=== PATIENT | female | born 1955 | race Caucasian/White ===

== ENCOUNTER 2019-05-03 15:32 | Inpatient (IN) | payer OTHER ==
--- NOTE | 2019-05-03 16:02 | PDOC ---
History of Present Illness - General Chief Complaint: Blood Pressure Problem Stated Complaint: HTN Time Seen by Provider: 05/03/19 15:39 - History of Present Illness Initial Comments: 05/03/19 15:57 Pt is a 63y/o F with hx of HTN and BCa s/p lumpectomy (on Anastrasozole) brought to ED from Urgent care center with BP of 216/110. Her BP at home this morning circa 6:30 a.m was 224 systolic. She took her blood pressure medication and went to work. While at work BP remained elevated and she proceeded to urgent care. She has had a mild throbbing headache for a few hours that she rates as a 2/10 at the back of her head. Denies any blurry vision, numbness, weakness, facial droop,fevers,chills. 05/06/19 19:17 Past History - Past Medical History Allergies/Adverse Reactions: Allergies Allergy/AdvReac Type Severity Reaction Status Date / Time No Known Allergies Allergy Verified 05/03/19 15:33 Home Medications: Ambulatory Orders Anastrozole [Arimidex -] 1 mg PO DAILY 05/03/19 Atorvastatin Ca [Lipitor] 40 mg PO HS 05/03/19 Amlodipine Besylate [Norvasc -] 5 mg PO DAILY 30 Days #30 tablet 05/04/19 Carvedilol [Coreg -] 12.5 mg PO BID 30 Days #60 tablet 05/04/19 Hydrochlorothiazide [Hctz -] 12.5 mg PO DAILY 30 Days #30 cap 05/04/19 Lisinopril [Prinivil] 40 mg PO DAILY 30 Days #30 tablet 05/04/19 COPD: No HTN: Yes - Suicide/Smoking/Psychosocial Hx Smoking History: Never smoked Hx Alcohol Use: No Drug/Substance Use Hx: No Review of Systems - Review of Systems Neurological: Yes: See HPI All Other Systems: Reviewed and Negative *Physical Exam - Vital Signs Last Vital Signs Temp Pulse Resp BP Pulse Ox 98.6 F 64 18 239/128 H 100 05/03/19 15:33 05/03/19 15:33 05/03/19 15:33 05/03/19 15:33 05/03/19 15:33 - Physical Exam General Appearance: Yes: Nourished, Appropriately Dressed. No: Apparent Distress, Disheveled HEENT: positive: EOMI, KEVIN, Normal Voice, Hearing Grossly Normal. negative: Scleral Icterus (R), Scleral Icterus (L) Respiratory/Chest: positive: Lungs Clear, Normal Breath Sounds. negative: Respiratory Distress, Labored Respiration, Rales, Wheezing Cardiovascular: positive: Regular Rhythm, Regular Rate, S1, S2, Bradycardia. negative: Edema, JVD, Murmur Integumentary: positive: Normal Color, Dry, Warm Neurologic: positive: search director II-XII NML intact, Fully Oriented, Alert, Normal Mood/ Affect, Normal Response, Motor Strength 5/5. negative: Facial Droop, Numbness ED Treatment Course - LABORATORY CBC & Chemistry Diagram: 05/04/19 07:00 05/04/19 07:00 Medical Decision Making - Medical Decision Making 05/03/19 16:02 BP on arrival in ED is 239/128 . She is proceeding to radiology for head CT. EKG from urgent care showed sinus bradycardia with HR (53) 05/03/19 16:31 Labetalol (20mg iv push) ordered for BP control EKG in ED shows sinus bradycardia HR (58). pr interval: 156ms qrs duration 102ms qt/qtc: 440/431ms Pt. on cardiac monitoring. 05/03/19 17:25 CT results : No hemorrhage. Arachnoid cyst in the posterior fossa. No other acute intracranial pathology. BP down to 194 systolic. Pt has received additional labetalol as well as lisinopril for further blood pressure control. Pt. has been admitted to Dr. Fidelina Sheffield's by Maricarmen Godfrey NP.for further evaluation. 05/03/19 18:42 BP now at 192/73 05/06/19 19:19 *DC/Admit/Observation/Transfer Diagnosis at time of Disposition: Hypertensive emergency - Discharge Dispostion Condition at time of disposition: Improved Decision to Admit order: Yes - Referrals - Patient Instructions - Post Discharge Activity - Transfer to Acute Care Facility Accepting Physician:: Fidelina Sheffield
[2019-05-03] MEDS ORDERED: LABETALOL HCL 5 MG/1 ML (100MG/20 ML VIAL) IVPUSH ONE ×2 (16:24→18:03)
[2019-05-03] MEDS ORDERED: LABETALOL HCL 5 MG/1 ML (100MG/20 ML VIAL) ONE (16:36)
[2019-05-03 16:37] LABS: BASO % 0.3 % (0-2.0); EOS % 0.8 % (0-4.5); HEMATOCRIT 42.9 % (32.4-45.2); HEMOGLOBIN 13.3 GM/dl (10.7-15.3); LYMPH % 28.7 % (8-40); MCH 20.4 pg (25.7-33.7); MCHC 31.1 g/dl (32.0-36.0); MEAN CELL VOLUME 65.6 fl (80-96); NEUT % 64.2 % (42.8-82.8); PLATELET COUNT 248 K/MM3 (134-434); RBC 6.54 M/mm3 (3.60-5.2); RDW 14.1 % (11.6-15.6); WHITE BLOOD COUNT 7.4 K/mm3 (4.0-10.8)
[2019-05-03 16:38] LABS: ADD RBC MORPHOLOGY YES
[2019-05-03 16:45] LABS: ALBUMIN 4.2 g/dl (3.4-5.0); BILIRUBIN,TOTAL 1.1 mg/dl (0.2-1); CALCIUM 9.5 mg/dl (8.5-10); CREATININE 0.7 mg/dl (0.55-1.3); POTASSIUM 4.2 mmol/L (3.5-5.1); TOT PROT 8.4 g/dl (6.4-8.2)
[2019-05-03 16:47] LABS: ACTIVATED PTT 38.8 SECONDS (25.2-36.5)
[2019-05-03 16:51] LABS: INR 1.11 (0.82-1.09); PROTHROMBIN TIME (PATIENT) 12.4 SEC (10.2-13.0)
--- NOTE | 2019-05-03 17:41 | PDOC ---
Attending Attestation - Resident Resident Name: Shan Fox - ED Attending Attestation I have performed the following: I have examined & evaluated the patient, The case was reviewed & discussed with the resident, I agree w/resident's findings & plan, Exceptions are as noted - HPI HPI: 05/14/19 12:40 63 years old past medical history significant for chronic hypertension hyperlipidemia presents emergency Department with headache and elevated blood pressure at home. Not sudden onset not maximal in onset not the worse headache of her life no associated neck pain nausea or vomiting she has had recent changes to her antihypertensive regimen Symptoms are mild to moderate persistent concent no exacerbating or alleviating factors. Insert my ROS statement - Physicial Exam PE: 05/14/19 12:40 Vitals: Triage Vital signs reviewed General Appearance: no acute distress, well nourished well developed, Head: Atraumatic, Eyes: Pupils equal reactive round, extraocular movement intact Cardiac: Regular rate and rhythym, no murmurs, no rubs, no gallops, Lungs: Clear to auscultation bilateral, good air movement bilaterally, Abdomen: Soft, non distended, normal bowel sounds, non tender to palpation Extremities: Full range of motion to all extremities, no cyanosis, clubbing, or edema Skin: Warm and dry, no rashes or lesions, no rash, no petechiae Neuro: AOX3; Cranial Nerves 2-12 grossly intact, Strength intact to all extremities, Sensation intact to all extremities,gait normal Psych: normal mood, normal affect - Critical Care Time Total Critical Care Time: 35 Critical Care Statement: The care of this patient involved high complexity decision making to prevent further life threatening deterioration of the patient 's condition and/or to evaluate & treat vital organ system(s) failure or risk of failure. - Medical Decision Making 05/14/19 12:41 63 years old with hypertensive urgency we'll check head CT labs, EKG, we'll treat with IV labetalol observe and reassess Head CT interpreted by me no acute bleed. Reevaluation EKG with no ischemic changes Reevaluation laboratory analysis within normal limits Reevaluation status post IV labetalol no significant improvement in patient's blood pressure Additional 20 mg of IV labetalol given Patient's blood pressure now starting to trend in the right direction do not want to overcorrect greater than 20% in the initial management Given the need for multiple rounds of IV medication to treat patient's hypertensive urgency we'll admit the hospital for further management.
[2019-05-03] MEDS ORDERED: LABETALOL HCL 100 MG TABLET (FP) PO ONE (17:56)
[2019-05-03] MEDS ORDERED: LISINOPRIL 20 MG TABLET (FP) PO ONE ×2 (17:58→18:03)
[2019-05-03] MEDS ORDERED: LISINOPRIL 5 MG TABLET (FP) ONE (17:59)
[2019-05-03] MEDS ORDERED: amLODIPine BESYLATE 5 MG TABLET (FP) PO ONE (18:43)
[2019-05-03] MEDS ORDERED: amLODIPine BESYLATE 5 MG TABLET (FP) ONE (19:03)
--- NOTE | 2019-05-03 20:33 | HP ---
CHIEF COMPLAINT: headache and elevated blood pressure PCP:Dr. Sheffield HISTORY OF PRESENT ILLNESS: This is a 63 year old female with history of chronic hypertension and hyperlipidemia who presents with symptoms of a headache. She was found to have elevated systolic blood pressures >200 at home. In the ER she was given IV labatalol 20 mg X2 and lisinopril 40 mg once with some improvement in blood pressure. She reports she stopped taking HCTZ because medicine made her urinate alot and she was at work and became an inconvenience. She also reported she previously was on amlodipine which made her legs swell up and then was added on HCTZ and amlodipine was stopped. She denied eating foods high in sodium and she reports being compliant to her other medical regimen including lisinopril ,metoprolol succinate and statin therapy. She denied symptoms of chest pain, back pain or shortness of breath. Workup revealed a normal CT scan of head with no acute intracranial findings and renal studies were normal. She is being admitted for hypertensive urgency and for blood pressure management. Recent Travel: denies PAST MEDICAL HISTORY: chronic hypertension PAST SURGICAL HISTORY: denies Social History: Smoking:denies Alcohol:denies Drugs: denies Family History: noncontributory Allergies No Known Allergies Allergy (Verified 05/03/19 15:33) HOME MEDICATIONS: Home Medications Medication Instructions Recorded Anastrozole [Arimidex -] 1 mg PO DAILY 05/03/19 Atorvastatin Ca [Lipitor] 40 mg PO HS 05/03/19 Lisinopril 0 mg PO DAILY 05/03/19 Metoprolol Succinate 100 mg PO DAILY 05/03/19 REVIEW OF SYSTEMS CONSTITUTIONAL: Absent: fever, chills, diaphoresis, generalized weakness, malaise, loss of appetite, weight change HEENT: Absent: rhinorrhea, nasal congestion, throat pain, throat swelling, difficulty swallowing, mouth swelling, ear pain, eye pain, visual changes CARDIOVASCULAR: Absent: chest pain, syncope, palpitations, irregular heart rate, lightheadedness , peripheral edema RESPIRATORY: Absent: cough, shortness of breath, dyspnea with exertion, orthopnea, wheezing, stridor, hemoptysis GASTROINTESTINAL: Absent: abdominal pain, abdominal distension, nausea, vomiting, diarrhea, constipation, melena, hematochezia GENITOURINARY: Absent: dysuria, frequency, urgency, hesitancy, hematuria, flank pain, genital pain MUSCULOSKELETAL: Absent: myalgia, arthralgia, joint swelling, back pain, neck pain SKIN: Absent: rash, itching, pallor HEMATOLOGIC/IMMUNOLOGIC: Absent: easy bleeding, easy bruising, lymphadenopathy, frequent infections ENDOCRINE: Absent: unexplained weight gain, unexplained weight loss, heat intolerance, cold intolerance NEUROLOGIC: Absent: headache, focal weakness or paresthesias, dizziness, unsteady gait, seizure, mental status changes, bladder or bowel incontinence PSYCHIATRIC: Absent: anxiety, depression, suicidal or homicidal ideation, hallucinations. PHYSICAL EXAMINATION Vital Signs - 24 hr 05/03/19 05/03/19 05/03/19 15:33 16:33 16:55 Temperature 98.6 F Pulse Rate 64 Pulse Rate [ 61 63 Apical] Respiratory 18 18 Rate Blood Pressure 239/128 H Blood Pressure 204/79 H 164/78 [Right Arm] O2 Sat by Pulse 100 99 Oximetry (%) 05/03/19 05/03/19 05/03/19 17:17 18:10 18:39 Temperature Pulse Rate Pulse Rate [ 63 64 61 Apical] Respiratory 18 17 Rate Blood Pressure Blood Pressure 185/74 H 200/83 H 192/73 H [Right Arm] O2 Sat by Pulse 97 Oximetry (%) 05/03/19 19:54 Temperature Pulse Rate Pulse Rate [ 60 Apical] Respiratory 16 Rate Blood Pressure Blood Pressure 190/83 H [Right Arm] O2 Sat by Pulse 98 Oximetry (%) GENERAL: awake alert and fully oriented no acute distress HEAD: normal EYES: pupils equal round and reactive to light EARS, NOSE, THROAT: ears normal nares patent NECK: normal range of motion LUNGS: breath sounds equal clear to auscultation bilaterally no wheezes no crackles no accessory muscle use HEART: regular rate and rhythm normal S1 and S2 ABDOMEN: soft nontender notdistended normoactive bowel sounds MUSCULOSKELETAL: normal range of motion at all joints no bony deformities or tenderness UPPER EXTREMITIES: 2+ pulses warm well-perfused no cyanosis no peripheral edema LOWER EXTREMITIES: 2+ pulses warm well-perfused no peripheral edema NEUROLOGICAL: normal speech PSYCHIATRIC: cooperative good eye contact appropriate mood and affect SKIN: warm dry normal turgor no rashes or lesions noted Laboratory Results - last 24 hr 05/03/19 05/03/19 05/03/19 16:15 16:15 16:15 WBC 7.4 RBC 6.54 H Hgb 13.3 Hct 42.9 MCV 65.6 L MCH 20.4 L MCHC 31.1 L RDW 14.1 Plt Count 248 MPV 8.0 Absolute Neuts (auto) 4.8 Neutrophils % 64.2 Lymphocytes % 28.7 Monocytes % 6.0 Eosinophils % 0.8 Basophils % 0.3 Hypochromia Few Microcytosis Few PT with INR 12.4 INR 1.11 PTT (Actin FS) 38.8 H Sodium 137 Potassium 4.2 Chloride 98 Carbon Dioxide 29 Anion Gap 10 BUN 13.0 Creatinine 0.7 Est GFR (CKD-EPI)AfAm 106.12 Est GFR (CKD-EPI)NonAf 91.56 Random Glucose 123 H Calcium 9.5 Total Bilirubin 1.1 H AST 28 ALT 21 Alkaline Phosphatase 98 Troponin I Total Protein 8.4 H Albumin 4.2 Blood Type Antibody Screen 05/03/19 05/03/19 05/03/19 16:15 16:19 16:23 WBC RBC Hgb Hct MCV MCH MCHC RDW Plt Count MPV Absolute Neuts (auto) Neutrophils % Lymphocytes % Monocytes % Eosinophils % Basophils % Hypochromia Microcytosis PT with INR INR PTT (Actin FS) Sodium Potassium Chloride Carbon Dioxide Anion Gap BUN Creatinine Est GFR (CKD-EPI)AfAm Est GFR (CKD-EPI)NonAf Random Glucose Calcium Total Bilirubin AST ALT Alkaline Phosphatase Troponin I < 0.03 Total Protein Albumin Blood Type B POSITIVE B POSITIVE Antibody Screen Negative ASSESSMENT/PLAN: 63 year old female with history of chronic hypertension(on meds) who presents with symptoms of a headache. She was found to have elevated systolic blood pressures ranging >220 . She is being admitted for hypertensive urgency. #1 Hypertensive Urgency Uncontrolled BP's with bradycardia on telemetry, euvolemic on clinical exam. EKG - sinus bradycadrdia, no LVH noted, CT head with no acute findings, arachnoid cyst noted. She was given IV labatalol 20 mg X2 and lisinopril 40 mg once with some improvement in blood pressure Continue with metoprolol succinate 100 mg once daily, lisinopril 40 mg daily and patient agreed to trying amlodipine 5 mg daily Check echocardiogram to exclude hypertensive cardiomyopathy and LVH Renal studies and troponin normal. Check renal US to exclude renal artery stenosis [facility]- Dr. Melgoza consulted #2 Hyperlipidemia Continue with statin therpay DVT Prophylaxsis TEDS, SCD's, encourage OOB as tolerated when blood pressure stabilized FEN Low sodium , low cholesterol diet Visit type - Emergency Visit Emergency Visit: Yes ED Registration Date: 05/03/19 Care time: The patient presented to the Emergency Department on the above date and was hospitalized for further evaluation of their emergent condition. - New Patient This patient is new to me today: Yes Date on this admission: 05/03/19 - Critical Care Critical Care patient: No
[2019-05-03] MEDS ORDERED: ACETAMINOPHEN 325 MG TABLET (FP) PO PRN (21:09)
[2019-05-03] MEDS ORDERED: ATORVASTATIN CA 40 MG TABLET (FP) PO SCH (22:00)
[2019-05-03] MEDS ORDERED: ANASTROZOLE 1 MG TABLET PO SCH (22:00)
[2019-05-04 00:26] VITALS: PULSE 53; TEMP 97.5
[2019-05-04 01:31] VITALS: BMI 27.0
[2019-05-04 06:31] VITALS: BP 151/66
[2019-05-04 07:48] LABS: BASO % 0.6 % (0-2.0); EOS % 1.6 % (0-4.5); HEMATOCRIT 40.7 % (32.4-45.2); HEMOGLOBIN 12.8 GM/dl (10.7-15.3); LYMPH % 37.7 % (8-40); MCH 20.7 pg (25.7-33.7); MCHC 31.3 g/dl (32.0-36.0); MEAN PLT VOLUME 7.9 fl (7.5-11.1); NEUT % 51.1 % (42.8-82.8); PLATELET COUNT 223 K/MM3 (134-434); RBC 6.17 M/mm3 (3.60-5.2); RDW 14.1 % (11.6-15.6); WHITE BLOOD COUNT 6.5 K/mm3 (4.0-10.8)
--- NOTE | 2019-05-04 07:49 | CON.CARD ---
Consult Consult Specialty:: Cardiology - History of Present Illness History of Present Illness: This is a 63 year old female with history of chronic hypertension and hyperlipidemia who presents with symptoms of a headache. She was found to have elevated systolic blood pressures >200 at home. In the ER she was given IV labatalol 20 mg X2 and lisinopril 40 mg once with some improvement in blood pressure. She reports she stopped taking HCTZ because medicine made her urinate alot and she was at work and became an inconvenience. She also reported she previously was on amlodipine which made her legs swell up and then was added on HCTZ and amlodipine was stopped. She denied eating foods high in sodium and she reports being compliant to her other medical regimen including lisinopril ,metoprolol succinate and statin therapy. She denied symptoms of chest pain, back pain or shortness of breath. Workup revealed a normal CT scan of head with no acute intracranial findings and renal studies were normal. She is being admitted for hypertensive urgency and for blood pressure management. - History Source History Provided By: Patient, Medical Record - Past Medical History Cardio/Vascular: Yes: HTN - Alcohol/Substance Use Hx Alcohol Use: No - Smoking History Smoking history: Never smoked Home Medications - Allergies Allergies/Adverse Reactions: Allergies Allergy/AdvReac Type Severity Reaction Status Date / Time No Known Allergies Allergy Verified 05/03/19 15:33 - Home Medications Home Medications: Ambulatory Orders Anastrozole [Arimidex -] 1 mg PO DAILY 05/03/19 Atorvastatin Ca [Lipitor] 40 mg PO HS 05/03/19 Amlodipine Besylate [Norvasc -] 5 mg PO DAILY 30 Days #30 tablet 05/04/19 Carvedilol [Coreg -] 12.5 mg PO BID 30 Days #60 tablet 05/04/19 Hydrochlorothiazide [Hctz -] 12.5 mg PO DAILY 30 Days #30 cap 05/04/19 Lisinopril [Prinivil] 40 mg PO DAILY 30 Days #30 tablet 05/04/19 Review of Systems - Review of Systems Constitutional: reports: No Symptoms Eyes: reports: No Symptoms HENT: reports: No Symptoms Neck: reports: No Symptoms Cardiovascular: reports: No Symptoms Gastrointestinal: reports: No Symptoms Genitourinary: reports: No Symptoms Breasts: reports: No Symptoms Reported Musculoskeletal: reports: No Symptoms Integumentary: reports: No Symptoms Neurological: reports: No Symptoms Endocrine: reports: No Symptoms Hematology/Lymphatic: reports: No Symptoms Psychiatric: reports: No Symptoms Vital Signs: Vital Signs Temperature 97.5 F L 05/04/19 06:00 Pulse Rate 53 L 05/04/19 06:00 Respiratory Rate 18 05/04/19 06:00 Blood Pressure 151/66 05/04/19 06:00 O2 Sat by Pulse Oximetry (%) 98 05/04/19 06:00 Constitutional: Yes: Well Nourished, No Distress, Calm Eyes: Yes: WNL, Conjunctiva Clear, EOM Intact HENT: Yes: WNL, Atraumatic, Normocephalic Neck: Yes: WNL, Supple, Trachea Midline Respiratory: Yes: WNL, Regular, CTA Bilaterally Gastrointestinal: Yes: WNL, Normal Bowel Sounds Renal/: Yes: WNL Cardiovascular: Yes: WNL, Regular Rate and Rhythm Musculoskeletal: Yes: WNL Extremities: Yes: WNL Integumentary: Yes: WNL Neurological: Yes: WNL, Alert, Oriented ...Motor Strength: WNL Psychiatric: Yes: WNL, Alert, Oriented - Other Data Labs, Other Data: INR, PTT INR 1.11 (0.82-1.09) 05/03/19 16:15 Troponin, BNP 05/03/19 16:23 Troponin I < 0.03 Troponin, BNP 05/03/19 16:23 Troponin I < 0.03 Imaging - Results Chest X-ray: Pending EKG: Image Reviewed (s jg o/w wnl) Problem List - Problems (1) Hypertensive emergency Code(s): I16.1 - HYPERTENSIVE EMERGENCY Assessment/Plan htn hlp plan norvasc 5 lisinopril 40 coreg 12.5 BID hctz 12.5 echo stress test as outpatient
[2019-05-04 08:14] LABS: CALCIUM 9.1 mg/dl (8.5-10); CREATININE 0.7 mg/dl (0.55-1.3); MAGNESIUM 2.1 mg/dL (1.8-2.4); POTASSIUM 4.3 mmol/L (3.5-5.1)
[2019-05-04] MEDS ORDERED: HYDROCHLOROTHIAZIDE 12.5 MG CAPSULE (FP) PO SCH (10:00)
[2019-05-04] MEDS ORDERED: amLODIPine BESYLATE 5 MG TABLET (FP) PO SCH (10:00)
[2019-05-04] MEDS ORDERED: ANASTROZOLE 1 MG TABLET PO SCH (10:00)
[2019-05-04] MEDS ORDERED: LISINOPRIL 20 MG TABLET (FP) PO SCH (10:00)
--- NOTE | 2019-05-04 10:54 | DS ---
Physical Exam: SUBJECTIVE: Patient seen and examined OBJECTIVE: Vital Signs Period Temp Pulse Resp BP Sys/Ann Pulse Ox Last 24 Hr 97.5 F-98.6 F 53-64 16-18 118-239/47-128 94-100 PHYSICAL EXAM GENERAL: The patient is awake, alert, and fully oriented, in no acute distress. HEAD: Normal with no signs of trauma. EYES: PERRL, extraocular movements intact, sclera anicteric, conjunctiva clear. ENT: Ears normal, nares patent, oropharynx clear without exudates, moist mucous membranes. NECK: Trachea midline, full range of motion, supple. LUNGS: Breath sounds equal, clear to auscultation bilaterally, no wheezes, no crackles, no accessory muscle use. HEART: Regular rate and rhythm, S1, S2 without murmur, rub or gallop. ABDOMEN: Soft, nontender, nondistended, normoactive bowel sounds, no guarding, no rebound, no hepatosplenomegaly, no masses. EXTREMITIES: 2+ pulses, warm, well-perfused, no edema. NEUROLOGICAL: Cranial nerves II through XII grossly intact. Normal speech, gait not observed. PSYCH: Normal mood, normal affect. SKIN: Warm, dry, normal turgor, no rashes or lesions noted. LABS Laboratory Results - last 24 hr 05/03/19 05/03/19 05/03/19 16:15 16:15 16:15 WBC 7.4 RBC 6.54 H Hgb 13.3 Hct 42.9 MCV 65.6 L MCH 20.4 L MCHC 31.1 L RDW 14.1 Plt Count 248 MPV 8.0 Absolute Neuts (auto) 4.8 Neutrophils % 64.2 Lymphocytes % 28.7 Monocytes % 6.0 Eosinophils % 0.8 Basophils % 0.3 Hypochromia Few Microcytosis Few PT with INR 12.4 INR 1.11 PTT (Actin FS) 38.8 H Sodium 137 Potassium 4.2 Chloride 98 Carbon Dioxide 29 Anion Gap 10 BUN 13.0 Creatinine 0.7 Est GFR (CKD-EPI)AfAm 106.12 Est GFR (CKD-EPI)NonAf 91.56 Random Glucose 123 H Calcium 9.5 Magnesium Total Bilirubin 1.1 H AST 28 ALT 21 Alkaline Phosphatase 98 Troponin I Total Protein 8.4 H Albumin 4.2 Blood Type Antibody Screen 0705/03/19 05/03/19 16:15 16:19 16:23 WBC RBC Hgb Hct MCV MCH MCHC RDW Plt Count MPV Absolute Neuts (auto) Neutrophils % Lymphocytes % Monocytes % Eosinophils % Basophils % Hypochromia Microcytosis PT with INR INR PTT (Actin FS) Sodium Potassium Chloride Carbon Dioxide Anion Gap BUN Creatinine Est GFR (CKD-EPI)AfAm Est GFR (CKD-EPI)NonAf Random Glucose Calcium Magnesium Total Bilirubin AST ALT Alkaline Phosphatase Troponin I < 0.03 Total Protein Albumin Blood Type B POSITIVE B POSITIVE Antibody Screen Negative 05/04/19 05/04/19 07:00 07:00 WBC 6.5 RBC 6.17 H Hgb 12.8 Hct 40.7 MCV 66.0 L MCH 20.7 L MCHC 31.3 L RDW 14.1 Plt Count 223 MPV 7.9 Absolute Neuts (auto) 3.3 Neutrophils % 51.1 Lymphocytes % 37.7 Monocytes % 9.0 Eosinophils % 1.6 Basophils % 0.6 Hypochromia Microcytosis PT with INR INR PTT (Actin FS) Sodium 138 Potassium 4.3 Chloride 99 Carbon Dioxide 27 Anion Gap 12 BUN 15.0 Creatinine 0.7 Est GFR (CKD-EPI)AfAm 106.12 Est GFR (CKD-EPI)NonAf 91.56 Random Glucose 110 H Calcium 9.1 Magnesium 2.1 Total Bilirubin AST ALT Alkaline Phosphatase Troponin I Total Protein Albumin Blood Type Antibody Screen HOSPITAL COURSE: This is a 63 year old female with history of chronic hypertension and hyperlipidemia who presents with symptoms of a headache. She was found to have elevated systolic blood pressures >200 at home. In the ER she was given IV labatalol 20 mg X2 and lisinopril 40 mg once with some improvement in blood pressure. She reports she stopped taking HCTZ because medicine made her urinate alot and she was at work and became an inconvenience. She also reported she previously was on amlodipine which made her legs swell up and then was added on HCTZ and amlodipine was stopped. She denied eating foods high in sodium and she reports being compliant to her other medical regimen including lisinopril ,metoprolol succinate and statin therapy. She denied symptoms of chest pain, back pain or shortness of breath. Workup revealed a normal CT scan of head with no acute intracranial findings and renal studies were normal. She is being admitted for hypertensive urgency and for blood pressure management. Pt was seen by cardiology and medication regimen changed to coreg BID, norvasc 5mg daily, lisinopril 40mg daily and HCTZ 12.5mg daily. ( All meds sent to her pharmacy). Renal sono without acute pathology, however, renal arteries were not assessed Ms. Sheffield will see PCP within 24-48hrs after discharge for BP check Pt will follow up with Dr. Hicks for stress testing and continued blood pressure management. Date of Admission:05/03/19 Date of Discharge: 05/04/19 Minutes to complete discharge: 45 Discharge Summary Reason For Visit: HTN Current Active Problems Hypertensive emergency (Acute) Condition: Improved - Instructions Diet, Activity, Other Instructions: Please schedule the following appointments: 1. Dr. Marcelina Monroy [phone] Vinh Hicks Address: [address] [place] [address], Phone: HTN EDUCATION: Blood pressure measurements fall into four general categories: Normal blood pressure. Your blood pressure is normal if it's below 120/80 mm Hg. Elevated blood pressure. Elevated blood pressure is a systolic pressure ranging from 120 to 129 mm Hg and a diastolic pressure below 80 mm Hg. Elevated blood pressure tends to get worse over time unless steps are taken to control blood pressure. Stage 1 hypertension. Stage 1 hypertension is a systolic pressure ranging from 130 to 139 mm Hg or a diastolic pressure ranging from 80 to 89 mm Hg. Stage 2 hypertension. More severe hypertension, stage 2 hypertension is a systolic pressure of 140 mm Hg or higher or a diastolic pressure of 90 mm Hg or higher Taking your blood pressure at home An important way to check if your blood pressure treatment is working, to confirm if you have high blood pressure, or to diagnose worsening high blood pressure, is to monitor your blood pressure at home. Home blood pressure monitors are widely available and inexpensive, and you don' t need a prescription to buy one. Home blood pressure monitoring isn't a substitute for visits to your doctor, and home blood pressure monitors may have some limitations. Make sure to use a validated device, and check that the cuff fits. Bring the monitor with you to your doctor's office to check its accuracy once a year. Talk to your doctor about how to get started with checking your blood pressure at home. Devices that measure your blood pressure at your wrist or finger aren't recommended by the [place] [employer]. Treatment Diagnosis and treatment Changing your lifestyle can go a long way toward controlling high blood pressure. Your doctor may recommend you make lifestyle changes including: Eating a heart-healthy diet with less salt Getting regular physical activity Maintaining a healthy weight or losing weight if you're overweight or obese Limiting the amount of alcohol you drink But sometimes lifestyle changes aren't enough. In addition to diet and exercise , your doctor may recommend medication to lower your blood pressure. Your blood pressure treatment goal depends on how healthy you are. Your blood pressure treatment goal should be less than 130/80 mm Hg if: You're a healthy adult age 65 or older You're a healthy adult younger than age 65 with a 10 percent or higher risk of developing cardiovascular disease in the next 10 years You have chronic kidney disease, diabetes or coronary artery disease Although 120/80 mm Hg or lower is the ideal blood pressure goal, doctors are unsure if you need treatment (medications) to reach that level. If you're age 65 or older, and use of medications produces lower systolic blood pressure (such as less than 130 mm Hg), your medications won't need to be changed unless they cause negative effects to your health or quality of life. The category of medication your doctor prescribes depends on your blood pressure measurements and your other medical problems. It's helpful if you work together with a team of emergency medical dispatcher experienced in providing treatment for high blood pressure to develop an individualized treatment plan. Medications to treat high blood pressure Thiazide diuretics. Diuretics, sometimes called water pills, are medications that act on your kidneys to help your body eliminate sodium and water, reducing blood volume. Thiazide diuretics are often the first, but not the only, choice in high blood pressure medications. Thiazide diuretics include chlorthalidone, hydrochlorothiazide (Microzide) and others. If you're not taking a diuretic and your blood pressure remains high, talk to your doctor about adding one or replacing a drug you currently take with a diuretic. Diuretics or calcium channel blockers may work better for people of heritage and older people than do angiotensin-converting enzyme (LALY) inhibitors alone. A common side effect of diuretics is increased urination. Angiotensin-converting enzyme (LALY) inhibitors. These medications such as lisinopril (Zestril), benazepril (Lotensin), captopril (Capoten) and others help relax blood vessels by blocking the formation of a natural chemical that narrows blood vessels. People with chronic kidney disease may benefit from having an LALY inhibitor as one of their medications. Angiotensin II receptor blockers (ARBs). These medications help relax blood vessels by blocking the action, not the formation, of a natural chemical that narrows blood vessels. ARBs include candesartan (Atacand), losartan (Cozaar) and others. People with chronic kidney disease may benefit from having an ARB as one of their medications. Calcium channel blockers. These medications including amlodipine (Norvasc) , diltiazem (Cardizem, Tiazac, others) and others help relax the muscles of your blood vessels. Some slow your heart rate. Calcium channel blockers may work better for older people and people of heritage than do LALY inhibitors alone. Grapefruit juice interacts with some calcium channel blockers, increasing blood levels of the medication and putting you at higher risk of side effects. Talk to your doctor or pharmacist if you're concerned about interactions. Additional medications sometimes used to treat high blood pressure If you're having trouble reaching your blood pressure goal with combinations of the above medications, your doctor may prescribe: Alpha blockers. These medications reduce nerve impulses to blood vessels, reducing the effects of natural chemicals that narrow blood vessels. Alpha blockers include doxazosin (Cardura), prazosin (Minipress) and others. Alpha-beta blockers. In addition to reducing nerve impulses to blood vessels , alpha-beta blockers slow the heartbeat to reduce the amount of blood that must be pumped through the vessels. Alpha-beta blockers include carvedilol ( Coreg) and labetalol (Trandate). Beta blockers. These medications reduce the workload on your heart and open your blood vessels, causing your heart to beat slower and with less force. Beta blockers include acebutolol (Sectral), atenolol (Tenormin) and others. Beta blockers aren't usually recommended as the only medication you're prescribed, but they may be effective when combined with other blood pressure medications. Aldosterone antagonists. Examples are spironolactone (Aldactone) and eplerenone (Inspra). These drugs block the effect of a natural chemical that can lead to salt and fluid retention, which can contribute to high blood pressure. Renin inhibitors. Aliskiren (Tekturna) slows down the production of renin, an enzyme produced by your kidneys that starts a chain of chemical steps that increases blood pressure. Aliskiren works by reducing the ability of renin to begin this process. Due to a risk of serious complications, including stroke, you shouldn't take aliskiren with LALY inhibitors or ARBs. Vasodilators. These medications, including hydralazine and minoxidil, work directly on the muscles in the farrell of your arteries, preventing the muscles from tightening and your arteries from narrowing. Central-acting agents. These medications prevent your brain from signaling your nervous system to increase your heart rate and narrow your blood vessels. Examples include clonidine (Catapres, Kapvay), guanfacine (Intuniv, Tenex) and methyldopa. To reduce the number of daily medication doses you need, your doctor may prescribe a combination of low-dose medications rather than larger doses of one single drug. In fact, two or more blood pressure drugs often are more effective than one. Sometimes finding the most effective medication or combination of drugs is a matter of trial and error. Resistant hypertension: When your blood pressure is difficult to control If your blood pressure remains stubbornly high despite taking at least three different types of high blood pressure drugs, one of which usually should be a diuretic, you may have resistant hypertension. People who have controlled high blood pressure but are taking four different types of medications at the same time to achieve that control also are considered to have resistant hypertension. The possibility of a secondary cause of the high blood pressure generally should be reconsidered. Having resistant hypertension doesn't mean your blood pressure will never get lower. In fact, if you and your doctor can identify what's behind your persistently high blood pressure, there's a good chance you can meet your goal with the help of treatment that's more effective. Your doctor or hypertension specialist may: Evaluate potential causes of your condition and determine if those can be treated Review medications you're taking for other conditions and recommend you not take any that worsen your blood pressure Recommend that you monitor your blood pressure at home to see if you may have higher blood pressure in the doctor's office (white coat hypertension) Suggest healthy lifestyle changes, such as eating a healthy diet with less salt, maintaining a healthy weight and limiting how much alcohol you drink Make changes to your high blood pressure medications to come up with the most effective combination and doses Consider adding an aldosterone antagonist such as spironolactone (Aldactone) , which may lead to control of resistant hypertension Some experimental therapies such as catheter-based radiofrequency ablation of renal sympathetic nerves (renal denervation) and electrical stimulation of carotid sinus baroreceptors are being studied. If you don't take your high blood pressure medications exactly as directed, your blood pressure can pay the chadwick. If you skip doses because you can't afford the medications, because you have side effects or because you simply forget to take your medications, talk to your doctor about solutions. Don't change your treatment without your doctor's guidance. Request an Appointment at [facility] Clinical trials Explore [facility] studies testing new treatments, interventions and tests as a means to prevent, detect, treat or manage this disease. Lifestyle and home remedies Lifestyle changes can help you control and prevent high blood pressure, even if you're taking blood pressure medication. Here's what you can do: Eat healthy foods. Eat a heart-healthy diet. Try the Dietary Approaches to Stop Hypertension (DASH) diet, which emphasizes fruits, vegetables, whole grains , poultry, fish and low-fat dairy foods. Get plenty of potassium, which can help prevent and control high blood pressure. Eat less saturated fat and trans fat. Decrease the salt in your diet. Aim to limit sodium to less than 2,300 milligrams (mg) a day or less. However, a lower sodium intake 1,500 mg a day or less is ideal for most adults. While you can reduce the amount of salt you eat by putting down the saltshaker, you generally should also pay attention to the amount of salt that' s in the processed foods you eat, such as canned soups or frozen dinners. Maintain a healthy weight. Keeping a healthy weight, or losing weight if you 're overweight or obese, can help you control your high blood pressure and lower your risk of related health problems. In general, you may reduce your blood pressure by about 1 mm Hg with each kilogram (about 2.2 pounds) of weight you lose. Increase physical activity. Regular physical activity can help lower your blood pressure, manage stress, reduce your risk of several health problems and keep your weight under control. Aim for at least 150 minutes a week of moderate aerobic activity or 75 minutes a week of vigorous aerobic activity, or a combination of moderate and vigorous activity. For example, try brisk walking for about 30 minutes most days of the week. Or try interval training, in which you alternate short bursts of intense activity with short recovery periods of employment attorney activity. Aim to do muscle-strengthening exercises at least two days a week. Limit alcohol. Even if you're healthy, alcohol can raise your blood pressure. If you choose to drink alcohol, do so in moderation. For healthy adults, that means up to one drink a day for women, and up to two drinks a day for men. One drink equals 12 ounces of beer, 5 ounces of wine or 1.5 ounces of 80-proof liquor. Don't smoke. Tobacco can injure blood vessel farrell and speed up the process of buildup of plaque in the arteries. If you smoke, ask your doctor to help you quit. Manage stress. Reduce stress as much as possible. Practice healthy coping techniques, such as muscle relaxation, deep breathing or meditation. Getting regular physical activity and plenty of sleep can help, too. Monitor your blood pressure at home. Home blood pressure monitoring can help you keep closer tabs on your blood pressure, show if medication is working , and even alert you and your doctor to potential complications. Home blood pressure monitoring isn't a substitute for visits to your doctor, and home blood pressure monitors may have some limitations. Even if you get normal readings, don't stop or change your medications or alter your diet without talking to your doctor first. If your blood pressure is under control, check with your doctor about how often you need to check it. Practice relaxation or slow, deep breathing. Practice taking deep, slow breaths to help relax. There are some devices available that promote slow, deep breathing. According to the [place] [employer], device-guided breathing may be a reasonable nondrug option for lowering blood pressure, especially when anxiety accompanies high blood pressure or standard treatments aren't well- tolerated. Control blood pressure during . If you're a woman with high blood pressure, discuss with your doctor how to control your blood pressure during . Alternative medicine Although diet and exercise are the most appropriate tactics to lower your blood pressure, some supplements also may help lower it. However, more research is needed to determine the potential benefits. These include: Fiber, such as blond psyllium and wheat bran Minerals, such as magnesium, calcium and potassium Folic acid Supplements or products that increase nitric oxide or widen blood vessels ( vasodilators), such as cocoa, coenzyme Q10, L-arginine or garlic Anita-3 fatty acids, found in fatty fish, high-dose fish oil supplements or flaxseed Some research is studying whether vitamin D can reduce blood pressure, but more research is needed. While it's best to include these supplements in your diet as foods, you can also take supplement pills or capsules. Talk to your doctor before adding any of these supplements to your blood pressure treatment. Some supplements can interact with medications, causing harmful side effects, such as an increased bleeding risk that could be fatal. You can also practice relaxation techniques, such as deep breathing or meditation, to help you relax and reduce your stress level. These practices may temporarily reduce your blood pressure. Coping and support High blood pressure isn't a problem that you can treat and then ignore. It's a condition you need to manage for the rest of your life. To keep your blood pressure under control: Take your medications properly. If side effects or costs pose problems, don' t stop taking your medications. Ask your doctor about other options. Schedule regular doctor visits. It takes a team effort to treat high blood pressure successfully. Your doctor can't do it alone, and neither can you. Work with your doctor to bring your blood pressure to a safe level, and keep it there. Adopt healthy habits. Eat healthy foods, lose excess weight and get regular physical activity. Limit alcohol. If you smoke, quit. Manage stress. Say no to extra tasks, release negative thoughts, maintain good relationships, and remain patient and optimistic. Sticking to lifestyle changes can be difficult, especially if you don't see or feel any symptoms of high blood pressure. If you need motivation, remember the risks associated with uncontrolled high blood pressure. It may help to enlist the support of your family and friends as well. Preparing for your appointment If you think you may have high blood pressure, make an appointment with your family doctor to have your blood pressure checked. No special preparations are necessary to have your blood pressure checked. You might want to wear a short-sleeved shirt to your appointment so that the blood pressure cuff can fit around your arm properly. Avoid eating, drinking caffeinated beverages and smoking right before your test. Plan to use the toilet before having your blood pressure measured. Because some medications, such as [id number] cold medicines, pain medications, antidepressants, control pills and others, can raise your blood pressure, it might be a good idea to bring a list of medications and supplements you take to your doctor's appointment. Don't stop taking any prescription medications that you think may affect your blood pressure without your doctor's advice. Because appointments can be brief, and because there's often a lot to discuss, it's a good idea to be prepared for your appointment. Here's some information to help you get ready for your appointment, and what to expect from your doctor. What you can do Write down any symptoms you're experiencing. High blood pressure seldom has symptoms, but it's a risk factor for heart disease. Letting your doctor know if you have symptoms like chest pains or shortness of breath can help your doctor decide how aggressively your high blood pressure needs to be treated. Write down knott personal information, including a family history of high blood pressure, high cholesterol, heart disease, stroke, kidney disease or diabetes, and any major stresses or recent life changes. Make a list of all medications, vitamins or supplements that you're taking. Take a family member or friend along, if possible. Sometimes it can be difficult to remember all the information provided to you during an appointment. Someone who accompanies you may remember something that you missed or forgot. Be prepared to discuss your diet and exercise habits. If you don't already follow a diet or exercise routine, be ready to talk to your doctor about any challenges you might face in getting started. Write down questions to ask your doctor. Your time with your doctor is limited, so preparing a list of questions will help you make the most of your time together. List your questions from most important to least important in case time runs out. For high blood pressure, some basic questions to ask your doctor include: What kinds of tests will I need? Do I need any medications? What foods should I eat or avoid? What's an appropriate level of physical activity? How often do I need to schedule appointments to check my blood pressure? Should I monitor my blood pressure at home? What are the alternatives to the primary approach that you're suggesting? I have other health conditions. How can I best manage them together? Are there any restrictions that I need to follow? Should I see a specialist? Is there a generic alternative to the medicine you're prescribing for me? Are there any brochures or other printed material that I can take home with me? What websites do you recommend visiting? In addition to the questions that you've prepared to ask your doctor, don't hesitate to ask questions during your appointment at any time that you don't understand something. What to expect from your doctor Your doctor is likely to ask you a number of questions. Being ready to answer them may reserve time to go over any points you want to spend more time on. Your doctor may ask: Do you have a family history of high cholesterol, high blood pressure or heart disease? What are your diet and exercise habits like? Do you drink alcohol? How many drinks do you have in a week? Do you smoke? When did you last have your blood pressure checked? What was your blood pressure measurement then? What you can do in the meantime It's never too early to make healthy lifestyle changes, such as quitting smoking , eating healthy foods and becoming more physically active. These are primary lines of defense against high blood pressure and its complications, including heart attack and stroke. Referrals: Vinh Busby MD [Staff Physician] - Disposition: HOME - Home Medications Comprehensive Discharge Medication List: Ambulatory Orders Anastrozole [Arimidex -] 1 mg PO DAILY 05/03/19 Atorvastatin Ca [Lipitor] 40 mg PO HS 05/03/19 Amlodipine Besylate [Norvasc -] 5 mg PO DAILY 30 Days #30 tablet 05/04/19 Carvedilol [Coreg -] 12.5 mg PO BID 30 Days #60 tablet 05/04/19 Hydrochlorothiazide [Hctz -] 12.5 mg PO DAILY 30 Days #30 cap 05/04/19 Lisinopril [Prinivil] 40 mg PO DAILY 30 Days #30 tablet 05/04/19 Problem List - Problems (1) Hypertensive emergency Code(s): I16.1 - HYPERTENSIVE EMERGENCY This patient is new to me today: Yes Date on this admission: 05/04/19 Emergency Visit: Yes ED Registration Date: 05/03/19 Care time: The patient presented to the Emergency Department on the above date and was hospitalized for further evaluation of their emergent condition. Critical Care patient: No - Discharge Referral Referred to [facility] No
[2019-05-04] MEDS ORDERED: CARVEDILOL 12.5 MG TABLET (FP) PO SCH (12:00)
--- NOTE | 2019-05-04 12:08 | EKG ---
Test Reason : Blood Pressure : / mmHG Vent. Rate : 058 BPM Atrial Rate : 058 BPM P-R Int : 156 ms QRS Dur : 102 ms QT Int : 440 ms P-R-T Axes : 033 -03 032 degrees QTc Int : 431 ms SINUS BRADYCARDIA OTHERWISE NORMAL ECG NO PREVIOUS ECGS AVAILABLE Confirmed by Rene Chino ([id number]) on 05/04/2019 12:08:30 PM Referred By: Confirmed By:Rene Chino
== END 2019-05-04 13:08 | disposition home or self-care (01) | DRG 199 ==
LOC: FER 15:32 → FM/S 18:18
PROVIDERS: ADMIT Internal Medicine; ATTEND Nurse Practitioner Family
DX: I16.0 Hypertensive urgency (principal); G93.0 Cerebral cysts; R00.1 Bradycardia, unspecified; E78.5 Hyperlipidemia, unspecified
CPT/HCPCS: 36415; 70450-TC; 76775-TC; 80048; 80053; 83735; 84484; 85025; 85610; 85730; 86850; 86900; 86901; 93005; 99283-25